=== PATIENT | female | born 1950 | race Caucasian/White ===

== ENCOUNTER 2023-09-21 09:39 | Emergency (ER) | payer MEDICARE, OTHER ==
--- NOTE | 2023-09-21 10:06 | ED Physician Documentation ---
PD HPI LOWER EXT INJURY - Stated complaint Stated Complaint: LT TOE INJURY - Chief complaint Chief Complaint: Ext Problem - History obtained from History obtained from: Patient - History of Present Illness PD HPI LOW EXT INJURY LOCATION: Left, Toe Type of injury: No: Fall, Twist Timing - onset: How many months ago (has had pain of great toe mainly mornings for months, better after up and walking/moving it. No redness, skin lesions. Has been more consistent the past week or so, and much more painful in the mornings.) PD PAST MEDICAL HISTORY - Past Medical History Past Medical History: Yes Musculoskeletal: Rheumatoid arthritis - Past Surgical History Past Surgical History: Yes Ortho: Hip replacement, Other - Present Medications Home Medications: Ambulatory Orders Medication Instructions Recorded Confirmed Diclofenac Sodium 1 mg PO BID #50 gm 09/21/23 - Allergies Allergies/Adverse Reactions: Allergies Allergy/AdvReac Type Severity Reaction Status Date / Time No Known Drug Allergies Allergy Verified 09/21/23 10:03 - Social History Does the pt smoke?: No Smoking Status: Never smoker Does the pt drink ETOH?: Yes Does the pt have substance abuse?: No - Immunizations Immunizations are current?: Yes - POLST Patient has POLST: No PD ED PE NORMAL - Vitals Vital signs reviewed: Yes - General General: Alert and oriented X 3, Well developed/nourished - Derm Derm: Normal color, Warm and dry - Extremities Extremities: Other (good cap refil and color in toes. Palpable pulses at ankle. No redness nor swelling of toe. No skin sores. Old surgical scar first MT with hardware palpable under skin, not tende there. ) - Neuro Neuro: No motor deficit, No sensory deficit Results - Vitals Vitals: Oxygen O2 Source Room air - Rads (name of study) great toe xray Relevant Findings:: Prelim report reviewed (fusion and hardware 1st MT/MTP. Chronic degerative change 4th toe PIP. ) PD Medical Decision Making - ED course Complexity details: reviewed results (xray arthritic changes. Prior bunion surgery. 4th PIP degenerative. No pain there though. ), considered differential (great toe pain at IP not MTP, worse in AMs until moves around some. Not much pain during days. Seems to have good color and pulses. Prior bunion surgery with hardware proximal. Likely arthritic. Does not appear as gout. ), d/w patient ED course: presume arthritic cause of pain with morning stiffness/pain. Does not seem infection nor gout. Can treat short term with NSAIDs and add Tylenol. Tylenol alone has not been effective for her, so add pain meds PRN. Departure - Departure Disposition: 01 Home, Self Care Clinical Impression: Great toe pain, Ingrown nail of great toe, Arthritis of big toe Condition: Stable Record reviewed to determine appropriate education?: Yes Follow-Up: JAZLYN ARREDONDO MD [Primary Care Provider] - Prescriptions: Diclofenac Sodium 1 mg PO BID #50 gm Comments: You did have the ingrowing toenail and upon removing that corner of it the skin was somewhat indented and red appearing. I think this may have been causing some of your pain. However I am not sure on the timing of it hurting mostly in the mornings or at night. There may be some arthritic change in through the toe as well and certainly her x-ray shows some mild arthritis in general. We can have you try some anti-inflammatory on the toe area 2-3 times daily. I understand you would prefer not to have oral medication and there is a topical version called diclofenac that he can be placed on their with a similar benefit. See how it is over the next several days to week if it seems to be improved. The anti-inflammatory would be with the impression that some of the pain may be just arthritis through the area. No signs of fractures or other abnormalities other than chronic changes around the bunion surgery and your fourth toe. Forms: PCP List Discharge Date/Time: 09/21/23 12:13
[2023-09-21 10:11] VITALS: O2SAT 100
--- NOTE | 2023-09-21 11:32 | XRAY Report ---
PROCEDURE: Toe(s) 2+V LT INDICATIONS: great toe pain TECHNIQUE: 3 views of the first toe(s) acquired. COMPARISON: None. FINDINGS: Bones: No fractures or dislocations. First MTP joint fusion. No evidence of hardware complication. N o suspicious bony lesions. Chronic appearing deformity of the fourth PIP. Second and third PIP appear ankylosed. Soft tissues: No suspicious soft tissue densities. IMPRESSION: No acute bony abnormality. First MTP joint fusion without evidence of hardware complication. Reviewed by: Arnoldo Johansen MD on 09/21/2023 10:31 AM EDITH Approved by: Arnoldo Johansen MD on 09/21/2023 10:31 AM DEITH Station ID: [id number]
[2023-09-21 12:16] VITALS: BP 128/62
== END 2023-09-21 12:13 | disposition home or self-care (01) ==
LOC: ED 09:39
DX: M19.072 Primary osteoarthritis, left ankle and foot (principal); L60.0 Ingrowing nail
CPT/HCPCS: 11765; 73660; 99283

== ENCOUNTER 2023-11-16 15:33 | Emergency (ER) | payer MEDICARE ==
--- NOTE | 2023-11-16 15:47 | ED Physician Documentation ---
PD HPI CHEST PAIN - Stated complaint Stated Complaint: CHEST PX - Chief complaint Chief Complaint: Cardiac - Additional information Additional information: 73-year-old female presents emergency department for intermittent chest pain that has been going on for 2 to 3 days now. Patient says that she is under an extensive amount of stress at home lately and has been having hard time coping with this. She is a very poor historian she says that she has history of low sodium last saw her primary care provider about 6 to 12 months ago and she was told to be on sodium tablets but has not been taking them. No nausea or vomiting no vision changes no shortness of breath she says that the chest pain is not caused by any sort of exertional activity and it comes on randomly. She is not currently experiencing any chest pain at this point time denies any unilateral calf or leg pain. PD PAST MEDICAL HISTORY - Past Medical History Past Medical History: Yes Musculoskeletal: Rheumatoid arthritis - Past Surgical History Past Surgical History: Yes Ortho: Hip replacement, Other - Present Medications Home Medications: Ambulatory Orders Medication Instructions Recorded Confirmed Sodium Chloride 1,000 mg PO DAILY #30 tab 11/16/23 - Allergies Allergies/Adverse Reactions: Allergies Allergy/AdvReac Type Severity Reaction Status Date / Time No Known Drug Allergies Allergy Verified 09/21/23 10:03 - Social History Does the pt smoke?: No Smoking Status: Never smoker Does the pt drink ETOH?: Yes Does the pt have substance abuse?: No - Immunizations Immunizations are current?: Yes - POLST Patient has POLST: No PD ED PE NORMAL - Vitals Vital signs reviewed: Yes - General General: Alert and oriented X 3, No acute distress, Well developed/nourished - HEENT HEENT: Atraumatic - Cardiac Cardiac: RRR, No murmur, No gallop, Strong equal pulses - Respiratory Respiratory: No respiratory distress, Clear bilaterally - Derm Derm: Normal color, Warm and dry, No rash - Extremities Extremities: No deformity, No edema, No calf tenderness / cord - Neuro Neuro: Alert and oriented X 3, 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, No motor deficit, No sensory deficit, Normal speech - Psych Psych: Normal mood, Normal affect Results - Vitals Vitals: Vital Signs - 24 hr 11/16/23 11/16/23 11/16/23 15:37 16:11 16:30 Temperature 36.8 C Heart Rate 87 78 82 Respiratory 16 16 16 Rate Blood Pressure 173/88 H 132/86 H 130/82 H Blood Pressure [Left] O2 Saturation 100 98 98 11/16/23 11/16/23 11/16/23 16:31 17:00 17:30 Temperature Heart Rate 80 78 Respiratory 18 18 Rate Blood Pressure 128/80 126/80 Blood Pressure 137/81 H [Left] O2 Saturation 98 98 11/16/23 17:59 Temperature Heart Rate 77 Respiratory 16 Rate Blood Pressure 126/80 Blood Pressure [Left] O2 Saturation 100 Oxygen O2 Source Room air - EKG (time done) 1601 EKG releavant findings:: EKG personally interpreted by author of this note. Relevant findings are: Rate: Rate (enter#) (85) Rhythm: NSR [place]: Normal Intervals: Normal AK, Prolonged QT QRS: Normal Ischemia: Normal ST segments - Labs Labs: Laboratory Tests 11/16/23 11/16/23 11/16/23 16:20 16:20 16:20 WBC 7.3 RBC 4.49 Hgb 13.0 Hct 38.4 MCV 85.5 MCH 29.0 MCHC 33.9 RDW 12.5 Plt Count 261 MPV 8.6 Neut # (Auto) 4.9 Lymph # (Auto) 1.8 Saline # (Auto) 0.6 Eos # (Auto) 0.0 Baso # (Auto) 0.1 Absolute Nucleated RBC 0.00 Nucleated RBC % 0.0 Sodium 128 L Potassium 3.8 Chloride 97 L Carbon Dioxide 22 Anion Gap 9.0 BUN 14 Creatinine 0.5 L Estimated GFR (MDRD) 122 Glucose 85 Calcium 9.0 Total Bilirubin 0.4 AST 13 ALT 12 Alkaline Phosphatase 45 Troponin I High Sens 2.4 Total Protein 6.3 L Albumin 4.1 Globulin 2.2 Albumin/Globulin Ratio 1.9 Lipase 52 TSH 1.59 - Rads (name of study) Chest x-ray Relevant Findings:: Final report received, EMP independent interpretation of test, Other (No acute cardiopulmonary process.) PD Medical Decision Making - ED course ED course: Exam without evidence of volume overload so doubt heart failure. EKG without signs of active ischemia. Given the timing of pain to ER presentation, single troponin was negative so doubt NSTEMI. Presentation not consistent with acute PE (Wells low risk low), pneumothorax (not visualized on chest xr), thoracic aortic dissection, pericarditis, tamponade, pneumonia (no infectious symptoms, clear chest xr), myocarditis (no recent illness, neg trop). HEART score:4 so plan to discharge patient home with PCP follow up. Patient did have hyponatremia, sodium 128 according to patient she always chronically has hyponatremia. She was told starting her salt tabs and a prescription was sent for the patient to pick these up tomorrow to see if her insurance will cover it. She is a little with her primary care provider as soon as possible for further evaluation and strict ER return precautions given. Departure - Departure Disposition: Home, Self Care Clinical Impression: Low sodium levels Chest pain Qualifiers: Chest pain type: unspecified Qualified Code(s): R07.9 - Chest pain, unspecified Instructions: ED Chest Pain Atypical Unkn Cause, ED Hyponatremia Prescriptions: Sodium Chloride 1,000 mg PO DAILY #30 tab Comments: Thank you for trusting us with your care, we have evaluated you for your chest pain. We have completed labs as well as an EKG and a chest x-ray and we are not seeing any acute abnormalities or findings at this point in time. We do see that you have low sodium also known as hyponatremia today your sodium level was 128. I have sent a prescription of salt tabs to your preferred pharmacy although you can buy these [id number] as well I would recommend taking 1 tab daily to help with your low sodium and follow-up with your primary care provider for further evaluation of your low sodium as well as a possible at home Holter monitor or Zio patch to monitor your heart rate at home. If you start to develop any worsening chest pain or shortness of breath or new symptoms please come back to the emergency department for reevaluation. Forms: PCP List Discharge Date/Time: 11/16/23 17:44
[2023-11-16 16:32] LABS: BASOPHILS # (AUTO) 0.1 10^3/uL (0.0-0.1); BASOPHILS % (AUTO) 1.1 %; EOSINOPHILS % (AUTO) 0.4 %; HCT - HEMATOCRIT 38.4 % (37.0-47.0); LYMPHOCYTES # (AUTO) 1.8 10^3/uL (1.5-3.5); LYMPHOCYTES % (AUTO) 24.1 %; MEAN CORPUSCULAR HGB CONC 33.9 g/dL (32.0-36.0); MEAN CORPUSCULAR VOLUME 85.5 fL (81.0-99.0); MEAN PLATELET VOLUME 8.6 fL (7.9-10.8); MONOCYTES # (AUTO) 0.6 10^3/uL (0.0-1.0); MONOCYTES % (AUTO) 7.8 %; NEUTROPHILS # (AUTO) 4.9 10^3/uL (1.5-6.6); NEUTROPHILS % (AUTO) 66.5 %; PLT - PLATELET COUNT 261 10^3/uL (130-450); RED BLOOD COUNT 4.49 10^6/uL (4.20-5.40); RED CELL DISTRIBUTION WIDTH 12.5 % (12.0-15.0); WHITE BLOOD COUNT 7.3 x10^3/uL (4.8-10.8)
[2023-11-16 16:53] LABS: TROPONIN I HIGH SENSITIVITY 2.4 ng/L (2.3-14.8)
[2023-11-16 17:05] LABS: ALBUMIN 4.1 g/dL (3.2-5.5); ALBUMIN/GLOBULIN RATIO 1.9 (1.0-2.2); BILIRUBIN,TOTAL 0.4 mg/dL (0.2-1.0); CREATININE 0.5 mg/dL (0.6-1.3); POTASSIUM 3.8 mmol/L (3.5-4.5); TOTAL PROTEIN 6.3 g/dL (6.4-8.9)
--- NOTE | 2023-11-16 17:19 | XRAY Report ---
PROCEDURE: Chest 1V INDICATIONS: Chest pain TECHNIQUE: One view of the chest was acquired. COMPARISON: 11/22/2021 FINDINGS: Surgical changes and devices: None. Lungs and pleura: No pleural effusions or pneumothorax. Lungs are clear. Mediastinum: Mediastinal contours appear normal. Heart size is normal. Bones and chest wall: No suspicious bony lesions. Overlying soft tissues appear unremarkable. IMPRESSION: No acute cardiopulmonary process. Reviewed by: José Manuel Mckeon MD on 11/16/2023 5:18 PM PDT Approved by: José Manuel Mckeon MD on 11/16/2023 5:18 PM PDT Station ID: [id number]
[2023-11-16 17:50] VITALS: BP 126/80
[2023-11-16 18:09] VITALS: O2SAT 100
== END 2023-11-16 17:44 | disposition home or self-care (01) ==
LOC: ED 15:33
DX: R07.9 Chest pain, unspecified (principal); E87.1 Hypo-osmolality and hyponatremia
CPT/HCPCS: 36415; 80053; 83690; 84443; 84484; 85025; 93005; 99283; 99284

== ENCOUNTER 2023-11-22 10:17 | Observation (INO) | payer MEDICARE ==
[2023-11-22 10:58] LABS: BASOPHILS # (AUTO) 0.1 10^3/uL (0.0-0.1); EOSINOPHILS % (AUTO) 0.4 %; HCT - HEMATOCRIT 40.3 % (37.0-47.0); HGB - HEMOGLOBIN 13.6 g/dL (12.0-16.0); LYMPHOCYTES % (AUTO) 19.1 %; MEAN CORPUSCULAR HEMOGLOBIN 29.1 pg (27.0-31.0); MEAN CORPUSCULAR HGB CONC 33.7 g/dL (32.0-36.0); MEAN CORPUSCULAR VOLUME 86.1 fL (81.0-99.0); MEAN PLATELET VOLUME 8.7 fL (7.9-10.8); MONOCYTES # (AUTO) 0.6 10^3/uL (0.0-1.0); MONOCYTES % (AUTO) 10.9 %; NEUTROPHILS # (AUTO) 3.5 10^3/uL (1.5-6.6); NEUTROPHILS % (AUTO) 68.2 %; PLT - PLATELET COUNT 225 10^3/uL (130-450); RED BLOOD COUNT 4.68 10^6/uL (4.20-5.40); RED CELL DISTRIBUTION WIDTH 12.7 % (12.0-15.0); WHITE BLOOD COUNT 5.1 x10^3/uL (4.8-10.8)
[2023-11-22 11:11] LABS: ALBUMIN 4.3 g/dL (3.2-5.5); ALBUMIN/GLOBULIN RATIO 1.7 (1.0-2.2); BILIRUBIN,TOTAL 0.5 mg/dL (0.2-1.0); CALCIUM 9.1 mg/dL (8.5-10.3); CREATININE 0.6 mg/dL (0.6-1.3); POTASSIUM 3.8 mmol/L (3.5-4.5); TOTAL PROTEIN 6.8 g/dL (6.4-8.9)
[2023-11-22 11:18] LABS: TROPONIN I HIGH SENSITIVITY 2.3 ng/L (2.3-14.8)
[2023-11-22 12:17] LABS: BILIRUBIN,URINE NEGATIVE (NEGATIVE); GLUCOSE, URINE (UA) NEGATIVE (NEGATIVE); KETONES,URINE (UA) NEGATIVE (NEGATIVE); LEUKOCYTE ESTERASE, URINE NEGATIVE (NEGATIVE); NITRITE,URINE NEGATIVE (NEGATIVE); OCCULT BLOOD,URINE SMALL (NEGATIVE); PH,URINE 6.5 PH (5.0-7.5); PROTEIN,URINE NEGATIVE (NEGATIVE); UROBILINOGEN,URINE 0.2 (NORMAL) E.U./dL (NORMAL)
[2023-11-22 12:21] LABS: CLARITY,URINE CLEAR (CLEAR)
--- NOTE | 2023-11-22 12:21 | ED Physician Documentation ---
History of Present Illness - Stated complaint Stated Complaint: GEN WEAKNESS, - Chief complaint Chief Complaint: Cardiac - Additonal information Additional information: 73-year-old female was here about a week ago for chest pain and had an unremarkable workup at that point time she did have hyponatremia, sodium level was 128. She was told before that she has had low sodium was told to take salt tabs but has not been taking them I told her to go home start taking her salt tabs and to follow-up with her primary care provider. Patient remains a very poor historian but she is here with her who says that he has been adding more salt to her food as well as patient has been taking daily salt tabs. She says since last week she has been having severe increased generalized weakness to the point where she feels like she is having a hard time walking she has a severe headache that will not go away and she is now complaining of urinary urgency and frequency. PD PAST MEDICAL HISTORY - Past Medical History Past Medical History: Yes Musculoskeletal: Rheumatoid arthritis - Past Surgical History Past Surgical History: Yes Ortho: Hip replacement, Other - Present Medications Home Medications: Ambulatory Orders Medication Instructions Recorded Confirmed Sodium Chloride 1,000 mg PO DAILY #30 tab 11/16/23 - Allergies Allergies/Adverse Reactions: Allergies Allergy/AdvReac Type Severity Reaction Status Date / Time No Known Drug Allergies Allergy Verified 11/22/23 13:19 - Social History Does the pt smoke?: No Smoking Status: Never smoker Does the pt drink ETOH?: Yes Does the pt have substance abuse?: No - Immunizations Immunizations are current?: Yes - POLST Patient has POLST: No PD ED PE NORMAL - Vitals Vital signs reviewed: Yes - General General: Alert and oriented X 3, No acute distress, Well developed/nourished - HEENT HEENT: Atraumatic, PERRL, EOMI, Moist mucous membranes - Cardiac Cardiac: RRR - Respiratory Respiratory: No respiratory distress - Abdomen Abdomen: Normal bowel sounds, Soft, Non tender, Non distended, No organomegaly - Back Back: No CVA TTP - Derm Derm: Normal color, Warm and dry, No rash - Extremities Extremities: No deformity, No tenderness to palpate, Normal ROM s pain, No edema, No calf tenderness / cord, Other (generalized upper and lower extremity weakness) - Neuro Neuro: Alert and oriented X 3, 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 Relevant findings are: Rate: Rate (enter#) (85) Rhythm: NSR Intervals: Other (ME 117) QRS: Normal Ischemia: Other (minimal ST depression in the inferior leads) Computer interpretation: Agree with computer - Labs Labs: Laboratory Tests 11/22/23 11/22/23 10:53 10:53 WBC 5.1 RBC 4.68 Hgb 13.6 Hct 40.3 MCV 86.1 MCH 29.1 MCHC 33.7 RDW 12.7 Plt Count 225 MPV 8.7 Neut # (Auto) 3.5 Lymph # (Auto) 1.0 L [place] # (Auto) 0.6 Eos # (Auto) 0.0 Baso # (Auto) 0.1 Absolute Nucleated RBC 0.00 Nucleated RBC % 0.0 Sodium 125 L Potassium 3.8 Chloride 91 L Carbon Dioxide 27 Anion Gap 7.0 BUN 10 Creatinine 0.6 Estimated GFR (MDRD) 99 Glucose 126 H Calcium 9.1 Total Bilirubin 0.5 AST 15 ALT 15 Alkaline Phosphatase 53 Troponin I High Sens 2.3 Total Protein 6.8 Albumin 4.3 Globulin 2.5 Albumin/Globulin Ratio 1.7 Lipase 49 PD Medical Decision Making - ED course ED course: 73-year-old female presents emergency department for worsening bilateral lower and upper extremity weakness. Patient is very poor historian unsure if she is at her mentation baseline or not when asked if she feels confused she says that she just feels fuzzy in the head. Her primary care provider is in [place] she does not remember the name. Her concern was possible urinary tract infection because she is been having urinary urgency and frequency. Urinalysis was complete for further evaluation shows a small amount of blood but no leukocytes or nitrites with few bacteria making less suspicious for possible UTI. Labs were reevaluated and her sodium appears to have dropped within the last week a week ago when I saw her sodium was 128 today is 125 despite adding salt tabs supplements and increasing salt intake with her diet. No anemia no other electrolyte abnormalities or findings. Differentials to consider for hyponatremia include but not limited to SIADH, possible undiagnosed heart failure (although unlikely given that patient has no bilateral lower extremity swelling or shortness of breath) or liver cirrhosis (again unlikely given the fact that patient has normal LFTs no right upper quadrant pain or tenderness. Patient was given 100 mL of hypertonic normal saline IV fluid solution I called hospitalist Renetta Curran who has graciously agreed to admit the patient for symptomatic hyponatremia and further evaluation for observation. Patient is agreeable to stay. Departure - Departure Disposition: ED Place in Observation Discharge Date/Time: 11/22/23 14:38
[2023-11-22 12:56] LABS: BACTERIA,URINE Few /HPF (None Seen); RBC,URINE 0-5 /HPF (0-5); SQUAMOUS EPITHELIAL CELL,UR FEW Squamous (<= Few); WBC,URINE 0-3 /HPF (0-5)
[2023-11-22] MEDS ORDERED: ONDANSETRON 4 MG/2 ML VIAL IVP PRN (13:25)
[2023-11-22] MEDS ORDERED: ACETAMINOPHEN 325 MG TABLET PO PRN (13:25)
[2023-11-22] MEDS ORDERED: SODIUM CHLORIDE FLUSH 0.9% 10 ML SYRINGE IVP PRN (13:25)
[2023-11-22] MEDS ORDERED: ONDANSETRON ODT 4 MG TABLET TL PRN (13:25)
[2023-11-22] MEDS ORDERED: oxyCODONE 5 MG TABLET PO PRN (13:25)
--- NOTE | 2023-11-22 13:33 | HISTORY & PHYSICAL EXAMINATION ---
Chief Complaint - Chief Complaint Chief Complaint: generalized weakness for a week History of Present Illness - Admitted From Admitted From:: home - History Obtained From Records Reviewed: [facility] History obtained from: Faina Mckinnon and patient Exam Limitations: none - History of Present Illness HPI Comment/Other: 73-year-old female who has a progressive memory loss for over 2-3 years as well as rheumatoid arthritis and was seen in our emergency room a week ago for chest pain. At that time she did have a sodium level of 128, troponins were negative, EKG negative and repeat troponin was negative. So she was sent home. She was also told to start salt tablets. She thinks she has been taking them. She is not sure. When I ask her , he says that he trust her to do her own medications. When I pointed out that they just shared with me that she has significant memory loss, there is a really believe that she is taking her medications. He said that the point was taken and that she may not be taking them after all and he will now take it upon himself to make sure she takes her medications. [place] and her primary care provider is Mike Hernandez MD with [facility] in [place]. [phone]. She may be confabulating and her states that he does not remember any of this but the patient tells me that her doctor told her that she had a low-salt years ago. And that she may have SIADH. Again, very poor memory, and is getting events confused in her head. She and her were living in [facility]. they moved here to have less pressure in their lives. He had a wall fall on him on the job and he had a neck fracture and months of recovery. He just could not work anymore. And then the 5 acres that they lived on was getting to be more work than he can take care of. They started scouting around for a new place to live and looked in [place], [place], [place], etc. [place]. [place] are starting to realize that medical care is difficult to access because [place] and have not been able to find an office to take her. She now returns with the same generalized weakness. Not much better than it was before. She feels like she cannot walk very far because her legs are "like noodles". She has a headache, urgency, frequency. Mild nausea. But no vomitin g, diarrhea. Feels like she has a fever but it is not confirmed. Her exam showed mildly elevated blood pressure at 167/88. 99% saturated on room air. Respirations 18 and unlabored. Heart rate 99 and a temp of 36.6. She was felt to have a normal physical exam. No edema. Alert and oriented x 3. Neuroexam normal. Laboratory studies showed a normal CBC. Sodium had been 128 last week and was now 125. BUN 10 and creatinine 0.6. Random glucose 126. Urinalysis had a specific gravity of 1.010. pH is 6.5. A few squamous cells, few bacteria. EKG had sinus rhythm with a normal axis. Normal R wave progression. Minimal nonspecific ST changes in the inferior leads. Troponin was 2.3. The emergency room provider feels that the patient is symptomatic from her hyponatremia of 125. And gave her 100 cc of hypertonic saline at 100 mL an hour. Repeat lab not done yet. As such, I am placing the patient in observation status. I am hoping that we can turn her sodium around to at least 130 in the next few hours and then discharge her. I will not give her more saline or hypertonic saline until I know what her sodium is after the hypertonic saline. Review of systems: Headache, presbyopia, memory loss, and frequent falls. In the last 3 weeks she has fallen 3 times. She thinks it is a combination of loss of balance or tripping on things. No seizures. Her thinks the memory loss may have been going on for more than 2 to 3 years. He remembers her having memory loss with constipation at the time of her hip fracture and repair probably 5 years ago. She eats a normal amount. No recent weight loss or weight gain. No constitutional complaints of fevers or sweats. ENT is the presbyopia. No dysphagia, dysarthria. No eustachian tube dysfunction. No rhinitis symptoms. Pulmonary: Denies cough, congestion, dyspnea exertion, phlegm production. Cardiac: Denies palpitations, history of arrhythmia, orthopnea, edema, or change in cardiovascular endurance. I ask about the chest pain from last week and she does not remember coming to the ER or the chest pain. She does vaguely remember being told that someone diagnosed her with a low-salt and she should be taking s alt tablets. GI: Constipation. She laments that sometimes she can go 7 or 8 days without a bowel movement. But no abdominal pain, no diarrhea, no change in the pattern of her bowel movements. No blood in her stool. : Occasional urinary incontinence. No vaginal bleeding. No urgency, frequency, dysuria Joints: No severe pain, no effusions. Skin: No sickness, no new lesions, no new rashes Psych: sad about her memory loss but denies depresssion due to her belief in the after life. Denies hallucinations. Neuro: Positive for headache, presbyopia, falls due to balance issues, and moderately progressive memory loss. He relates that he came in from working outside in the yard last week. Found her with a cold compress on the left side of her face where she had fallen and hit her face on the floor. I am noting that this patient has a very flat, monotonic, slow affect. I asked him how long this has been going on and he says 6 to 9 months. History - Past Medical History Cardiovascular: reports: None Respiratory: reports: None Neuro: reports: Alzhiemer's, Headaches, Other (falls) Endocrine/Autoimmune: reports: None GI: reports: Chronic constipation CASH POSTING SPECIALIST: reports: Other ( G0, P0) : reports: Incontinence, Frequency HEENT: reports: Chronic vision loss Psych: reports: None Musculoskeletal: reports: Rheumatoid arthritis MRSA Hx?: No - Past Surgical History Ortho: reports: Hip replacement, Other - Family & Social History Family History Comment/Other: dad in his 70s of a ruptured aortic aneurysm. Mom of congestive heart failure. 1 sister in July, 2 years ago, of metastatic breast cancer. For close to 10 years she treated it on her own. She did not want chemo. 1 brother in a car accident. No children. She has 1 adopted daughter from [facility] who she adopted at the age of 17 and is now 28. Living arrangement: At home Living Situation: With spouse/s.o. Social History Notes: She never smoked. She rarely drinks. Is a born again Christianity and feels that when she dies she will meet up with her family and have them. 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 She is to her for over 40 something years. Retired about 5 years ago she thinks. Not sure. No history of recreational substance abuse. - Substance History Use: Uses substance without health or social issues: NONE Abuse: Recurrent use of substance despite neg consequences: NONE Dependence: Experiences withdrawal or developed tolerances: NONE - POLST Patient has POLST: No POLST Status: DNR (Would like to fill out a POLST) Meds/Allgy - Home Medications Home Medications: Ambulatory Orders Medication Instructions Recorded Confirmed Sodium Chloride 1,000 mg PO DAILY #30 tab 11/16/23 - Allergies Allergies/Adverse Reactions: Allergies Allergy/AdvReac Type Severity Reaction Status Date / Time No Known Drug Allergies Allergy Verified 11/22/23 13:19 Prior Level of Functionality: able to feed herself, dress herself. Needs prompting to get a bath. So far is not using durable medical equipment to get around even though she has been falling. Exam - Vital Signs Reviewed Vital Signs: Yes Vital Signs: Vital Signs x48h Temp Pulse Resp BP Pulse Ox 11/22/23 13:03 73 11 L 139/73 H 100 11/22/23 10:25 36.6 C 99 18 167/88 H 99 - Physical Exam General Appearance: positive: No acute distress, Alert ( Sitting up in bed, occasionally smiles but severely depressed/flat/anhedonic slow-moving affect. Bradykinesia evident.) Eyes Bilateral: positive: PERRL, EOMI ENT: positive: No signs of dehydration Neck: positive: No JVD. negative: Stiff neck Respiratory: positive: No respiratory distress. negative: Wheezes, Rales, Rhonchi Cardiovascular: positive: Regular rate & rhythm Peripheral Pulses: positive: 1+ Abdomen: positive: Non-tender, No organomegaly, Nml bowel sounds, No distention Skin: positive: Warm, Dry. negative: Pallor Extremities: positive: Full ROM. negative: No pedal edema Neurologic/Psychiatric: positive: Disoriented to time, Slurred/abnml speech, Depressed mood/affect. negative: Motor nml ( Psychomotor slowing with bradykinesia), Weakness, Sensory loss Conclusion/Plan - Problem List (1) Hyponatremia Conclusion/Plan: This is a difficult historian. At times the conversation with circular. but her symptoms of worsening weakness, acute worsening of memory, nausea, lack of appetite could all be symptoms of hyponatremia. Her appears to be giving her a lot of credence and is letting her make her own decisions, but even he is starting to realize that some of her story is inconsistent, and that he may have to become more of a primary caregiver that he already is. For instance he assumed she was taking her salt tablets and now he is wondering if she is. She also says that she has a SIADH and that her low sodium has been going on for years. But he is shaking his head slowly thinking that this is not the truth but he is not sure. Differential diagnosis would include such fluid retention states that she is congestive heart failure, cirrhosis. She does not have it. Medications such as diuretics, she does not have that. Or serotonin reuptake inhibitors. She says she does not take those drugs. She could have SIADH and seems to remember that acronym but I really cannot trust her memory. There is no description of water intoxication. Her [place] adopted daughter is very high needs and high maintenance. Is always telling mom to drink more water but mom thinks that she does not drink more than eight 8 ounce glasses a day. She is already received 100 cc of hypertonic saline in the ER. Plan: observation status Normal saline to start once I know her next Sodium level. I do not think the patient will be here greater than 24 hours, and I will be off service when the [facility] office is open on Friday. But I will keep her name and number and call her primary care provider to see if there has been any workup for the sodium so far. Recheck sodium every 6 hours and adjust Nork to normal saline or D5 depending on the salt level. (2) Dementia Conclusion/Plan: If she only had memory loss, I feel that this would be more Alzheimer's type dementia. But she seems to have bradykinesia compatible with parkinsonian p atient so I wonder if she has Lewy body dementia. However she does not have psychosis or hallucinations. She has no history of alcohol abuse that would give her alcoholic induced dementia. She is falling, is incontinent, and has a flat affect which leads me to believe she may have normal pressure hydrocephalus as a possible differential. Plan: TSH, B12, RPR will be ordered by me for the morning Review CT of the head and if there is any ventriculomegaly she will need an MRI and a cisternogram I will send this H&P to her PCP at her request so that there is continuity of care. Qualifiers: Dementia type: unspecified type Dementia severity: moderate Dementia behavioral or psychological symptom: without behavioral, psychotic, or mood disturbance or anxiety Qualified Code(s): F03.B0 - Unspecified dementia, moderate, without behavioral disturbance, psychotic disturbance, mood dist urbance, and anxiety (3) Has difficulty accessing primary care provider for most visits Conclusion/Plan: I will ask social work to please give her a [place]. But I have asked the patient to go ahead and make an [place] Keep on seeing that primary care provider until she can establish yourself with someone here. The patient also states that she wants to be DO NOT RESUSCITATE. So I will to have her fill out a POLST form. - Lab Results Lab results reviewed: Yes Fish Bones: 11/22/23 10:53 11/22/23 16:38 - Diagnostic Imaging Results Diagnostic Imaging Results: positive: Final report reviewed Core Measures - Anticipated LOS I expect patient to be DC'd or transferred within 96 hours.: Yes - DVT/VTE - Prophylaxis VTE/DVT Prophylaxis med ordered at admit?: Yes
[2023-11-22] MEDS: SODIUM CHLORIDE 3% HYPERTONIC 100 ML IV SCH (13:48)
[2023-11-22] MEDS: SODIUM CHLORIDE 0.9% 1,000 ML IV SCH (15:06)
[2023-11-22] MEDS: SODIUM CHLORIDE FLUSH 0.9% 10 ML SYRINGE IVP SCH (18:03)
[2023-11-22 23:16] LABS: CALCIUM 8.5 mg/dL (8.5-10.3); CREATININE 0.5 mg/dL (0.6-1.3); POTASSIUM 3.7 mmol/L (3.5-4.5)
[2023-11-23 05:32] LABS: BASOPHILS % (AUTO) 0.8 %; EOSINOPHILS # (AUTO) 0.1 10^3/uL (0.0-0.7); EOSINOPHILS % (AUTO) 2.1 %; HCT - HEMATOCRIT 35.1 % (37.0-47.0); LYMPHOCYTES # (AUTO) 1.2 10^3/uL (1.5-3.5); LYMPHOCYTES % (AUTO) 30.8 %; MEAN CORPUSCULAR HEMOGLOBIN 29.6 pg (27.0-31.0); MEAN CORPUSCULAR HGB CONC 34.2 g/dL (32.0-36.0); MEAN CORPUSCULAR VOLUME 86.5 fL (81.0-99.0); MEAN PLATELET VOLUME 8.8 fL (7.9-10.8); MONOCYTES # (AUTO) 0.6 10^3/uL (0.0-1.0); MONOCYTES % (AUTO) 14.9 %; NEUTROPHILS % (AUTO) 51.1 %; PLT - PLATELET COUNT 183 10^3/uL (130-450); RED BLOOD COUNT 4.06 10^6/uL (4.20-5.40); RED CELL DISTRIBUTION WIDTH 12.7 % (12.0-15.0); WHITE BLOOD COUNT 3.9 x10^3/uL (4.8-10.8)
[2023-11-23 05:47] LABS: CALCIUM 8.4 mg/dL (8.5-10.3); CREATININE 0.4 mg/dL (0.6-1.3); POTASSIUM 3.7 mmol/L (3.5-4.5)
[2023-11-23 06:02] LABS: THYROID STIMULATING HORMONE 1.95 uIU/mL (0.34-5.60)
--- NOTE | 2023-11-23 07:50 | CT Report ---
PROCEDURE: Head WO INDICATIONS: frequent falls, ataxia, urine incont, dementia TECHNIQUE: Noncontrast 4.5 mm thick angled axial sections acquired from the foramen magnum to the vertex. For r adiation dose reduction, the following was used: automated exposure control, adjustment of mA and/or kV according to patient size. COMPARISON: None. FINDINGS: Image quality: Excellent. CSF spaces: Basal cisterns are patent. No extra-axial fluid collections. Ventricles are normal in size and shape. Brain: No midline shift. No intracranial masses or hemorrhage. Age-related global volume loss and c hronic microvascular ischemic changes. The ventricles are normal in size for degree of volume loss. I ntracranial atherosclerotic vascular calcifications. Henderson-white matter interface is normal. Skull and face: Osseous prominence along the right parietal bone measuring 3.0 x 1.0 x 3.0 cm (AP by TV by CC). Calvarium and visualized facial bones are intact, without suspicious lesions. Sinuses: Visualized sinuses and mastoids are clear. IMPRESSION: 1.No acute intracranial pathology. 2.Osseous prominence along the right parietal bone as described above. Likely benign in etiology. Rec ommend clinical correlation and if there is concern for growth, follow-up imaging. Reviewed by: Arnoldo Moreland MD on 11/23/2023 7:48 AM PDT Approved by: Arnoldo Moreland MD on 11/23/2023 7:48 AM PDT Station ID: [id number]
--- NOTE | 2023-11-23 08:15 | Discharge Plan ---
Discharge Plan Problem Reviewed?: Yes Disposition: Home, Self Care Condition: Stable Diet: Regular Activity Restrictions: Activity as Tolerated Shower Restrictions: No Driving Restrictions: Yes (no driving) Health Concerns: [place] and your primary care provider is with [facility] in [place]. Your main medical issue is that of memory loss has been gradually progressive over the last 2 to 3 years. You came to our emergency room a few days ago with weakness, fatigue, nausea and worsening of your baseline memory loss. In the emergency room we found you to have a sodium of 128. Normal is 135. You were given salt tablets and sent home. It is unclear if you are taking them. You return to the hospital with continued weakness and you felt like your legs were not can to support you. You came back to the emergency room at this time your sodium was 124. We have given you salt water intravenously. And your sodium is now 131 this morning. I also did a CT head because of your history of falls. You have a bony growth on the right side of your skull. But the inside of your skull appears to be com patible with age and loss of brain tissue from dementia. Plan of Treatment: 1. Please see your primary care provider in follow-up back in [place]. You are going to have to keep on seeing Dr. Hernandez until you can establish yourself with a new primary care provider office. 2. [employer] has given you a list of primary care provider offices. Please start calling them immediately so that you can get an appointment sooner rather than later. 3. When we met, we went over your wishes for the future and you do not want to be resuscitated if your heart stops or you stop breathing. As such you filled out a POLST form while here. The original green sheet will go home with you and a copy of it stays in your electronic medical record here in the hospital. 4. I explained to her that she has psychomotor slowing, muted flat affect compatible with either Lewy body dementia or parkinsonian disease. She is alert and oriented to person and place. But recall is poor. She is also having urinary incontinence and falls. would like her to follow-up with her primary care provider about getting an evaluation for normal pressure hydrocephalus. Care Goals: To slow down the rate of your memory loss and to have your sodium stay normal No Smoking: If you smoke, Please STOP! Call for help.
[2023-11-23 08:17] VITALS: BP 127/74; O2SAT 97
[2023-11-23] MEDS: polyethylene glycoL 3350 17 GM PACKET PO SCH (09:24)
[2023-11-23] MEDS: ENOXAPARIN 40 MG/0.4 ML SYRINGE SUBQ SCH (09:24)
--- NOTE | 2023-11-23 14:45 | DISCHARGE SUMMARY ---
Discharge Summary Admit Date: 11/22/23 Discharge Date: 11/23/23 Discharging Provider: Laura Will MD Primary Care Provider: Mike Hernandez MD ([facility]) Code Status: Do Not Attempt Resuscitation Condition at Discharge: Stable Discharge Disposition: 01 Home, Self Care - DIAGNOSES Discharge Diagnoses with Status of Each Condition: 1. Hyponatremia with symptoms 2. Moderate Alzheimer's dementia without behavioral disturbance, psychotic disturbance, mood disturbance, or anxiety 3. Bradykinesia 4. Frequent falls 5. Urinary incontinence 6. Has difficulty accessing primary care provider for most visits - HPI History of Present Illness: 73-year-old female who has a progressive memory loss for over 2-3 years as well as rheumatoid arthritis and was seen in our emergency room a week ago for chest pain. At that time she did have a sodium level of 128, troponins were negative, EKG negative and repeat troponin was negative. So she was sent home. She was also told to start salt tablets. She thinks she has been taking them. She is not sure. When I ask her , he says that he trust her to do her own medications. When I pointed out that they just shared with me that she has significant memory loss, there is a really believe that she is taking her medications. He said that the point was taken and that she may not be taking them after all and he will now take it upon himself to make sure she takes her medications. [place] recently [place] the [place] 12 [place] ago and her primary care provider is Mike Hernandez MD with [facility] in [place]. [phone]. She may be confabulating and her states that he does not remember any of this but the patient tells me that her doctor told her that she had a low-salt years ago. And that she may have SIADH. Again, very poor memory, and is getting events confused in her head. She and her were living in [facility]. they moved here to have less pressure in their lives. He had a wall fall on him on the job and he had a neck fracture and months of recovery. He just could not work anymore. And then the 5 acres that they lived on was getting to be more work than he can take care of. They started scouting around for a new place to live and looked in [place], [place], [place], etc. [place]. [place] are starting to realize that medical care is difficult to access because [place] is [place] and have not been able to find an office to take her. She now returns with the same generalized weakness. Not much better than it was before. She feels like she cannot walk very far because her legs are "like noodles". She has a headache, urgency, frequency. Mild nausea. But no vomiting, diarrhea. Feels like she has a fever but it is not confirmed. Her exam showed mildly elevated blood pressure at 167/88. 99% saturated on room air. Respirations 18 and unlabored. Heart rate 99 and a temp of 36.6. She was felt to have a normal physical exam. No edema. Alert and oriented x 3. Neuroexam normal. Laboratory studies showed a normal CBC. Sodium had been 128 last week and was now 125. BUN 10 and creatinine 0.6. Random glucose 126. Urinalysis had a specific gravity of 1.010. pH is 6.5. A few squamous cells, few bacteria. EKG had sinus rhythm with a normal axis. Normal R wave progression. Minimal nonspecific ST changes in the inferior leads. Troponin was 2.3. The emergency room provider feels that the patient is symptomatic from her hyponatremia of 125. And gave her 100 cc of hypertonic saline at 100 mL an hour. Repeat lab not done yet. As such, I am placing the patient in observation status. I am hoping that we can turn her sodium around to at least 130 in the next few hours and then discharge her. I will not give her more saline or hypertonic saline until I know what her sodium is after the hypertonic saline. - CONSULTS | PROCEDURES Procedures: CT of head without ventriculomegaly - HOSPITAL COURSE Hospital Course: The patient received a single dose of hypertonic saline in the emergency room. That she went from 125 229 by that evening. I then started her on 0.9 normal saline and the patient is now 131 this morning. She is still a flat affect, with psychomotor slowing, but no nausea. She is not oriented to date and time but has an improved speech pattern and interactiveness with me. I am now send ing her home since her sodium has normalized. She will go home on the salt tablets were already prescribed. I am asking her to follow-up with her primary care provider from [facility] in [place]. Keep on seeing at primary care provider until she [place] We have also given her a list of primary care providers that have possible appointments for her. I have explained to the that he needs to take over giving her her medicines and making sure she eats. While he loves her very much, and "trusts her decisions" he is not keeping track of her food, bowel habits, or medications. She has enough moderate dementia at this time that he needs to allen e over those tasks. she has significant psychomotor slowing on exam. She does not present as a pical dementia patient. While she definitely has memory loss, the psychomotor slowing, flat affect, and description of urinary incontinence/gait ataxia present as a possibility for normal pressure hydrocephalus. Her CT of head was negative. I would recommend that her primary care provider continue the workup for her dementia, or send her to neurology to see if she has a variant of Parkinson's or Lewy body dementia. She is not hallucinating or does she have psychosis. TSH, B12, and RPR were normal here. - ALLERGIES Allergies/Adverse Reactions: Allergies Allergy/AdvReac Type Severity Reaction Status Date / Time No Known Drug Allergies Allergy Verified 11/22/23 13:19 - MEDICATIONS Home Medications: Ambulatory Orders Medication Instructions Recorded Confirmed Sodium Chloride 1,000 mg PO DAILY #30 tab 11/16/23 Donepezil [Aricept] 5 mg PO DAILY 11/23/23 - PHYSICAL EXAM AT DISCHARGE General Appearance: positive: No acute distress, Alert Eyes Bilateral: positive: PERRL, EOMI ENT: positive: No signs of dehydration Neck: positive: No JVD. negative: Stiff neck Respiratory: positive: No respiratory distress. negative: Wheezes, Rales, Rho nchi Cardiovascular: positive: Regular rate & rhythm Abdomen: positive: Non-tender, No organomegaly, Nml bowel sounds, No distention Skin: positive: Warm, Dry Extremities: positive: Full ROM, No pedal edema Neurologic/Psychiatric: positive: Oriented x3, CN's nml (2-12). negative: Motor nml ( No focal deficits. Romberg positive. No tremors. Psychomotor slowing with perception and response) - LABS Result Diagrams: 11/23/23 05:16 11/23/23 05:16
[2023-11-25 13:10] LABS: OSMOLALITY 269 mOsmol/kg (280-301); OSMOLALITY URINE 550 mOsmol/kg (.)
[2023-11-26 02:08] LABS: RPR Non Reactive (Non Reactive)
== END 2023-11-23 10:40 | disposition home or self-care (01) ==
LOC: ED 10:17 → MS2 13:25
PROVIDERS: ADMIT Specialist; ATTEND Specialist
DX: E87.1 Hypo-osmolality and hyponatremia (principal); R39.15 Urgency of urination; R35.0 Frequency of micturition; G30.9 Alzheimer's disease, unspecified; F02.80 Dementia in other diseases classified elsewhere, unspecified severity, without behavioral disturbance, psychotic disturbance, mood disturbance, and anxiety; R25.8 Other abnormal involuntary movements; R29.6 Repeated falls; R32 Unspecified urinary incontinence; M06.9 Rheumatoid arthritis, unspecified; K59.00 Constipation, unspecified; H52.4 Presbyopia; R51.9 Headache, unspecified; Z66 Do not resuscitate; Z75.3 Unavailability and inaccessibility of health-care facilities; Z91.81 History of falling
CPT/HCPCS: 36415; 70450; 80048; 80053; 81001; 82607; 83690; 83930; 83935; 84295; 84300; 84443; 84484; 85025; 86592; 93005; 99285; A9270; G0378; 81003; 87086

== ENCOUNTER 2023-12-15 16:11 | Emergency (ER) | payer MEDICARE ==
--- NOTE | 2023-12-15 16:41 | XRAY Report ---
PROCEDURE: Chest 2V INDICATIONS: SOA TECHNIQUE: 2 views of the chest were acquired. COMPARISON: 11/16/2023. FINDINGS: Surgical changes and devices: None. Lungs and pleura: No pleural effusions or pneumothorax. Lungs are clear. Mediastinum: Mediastinal contours appear normal. Heart size is normal. Bones and chest wall: No suspicious bony lesions. Overlying soft tissues appear unremarkable. IMPRESSION: No acute cardiopulmonary process. Reviewed by: Fco Euceda MD on 12/15/2023 4:40 PM PDT Approved by: Fco Euceda MD on 12/15/2023 4:40 PM PDT Station ID: [id number]
[2023-12-15 17:36] LABS: B. PARAPERTUSSIS- RESP PCR PAN NOT DETECTED; B. PERTUSSIS- RESP PCR PANEL NOT DETECTED; C. PNEUMONIAE- RESP PCR PANEL NOT DETECTED; CORONAVIRUS 229E-RESP PCR NOT DETECTED; CORONAVIRUS HKU1-RESP PCR NOT DETECTED; CORONAVIRUS NL63-RESP PCR NOT DETECTED; CORONAVIRUS OC43-RESP PCR NOT DETECTED; HUMAN METAPNEUMOVIRUS NOT DETECTED; INFLUENZA A- RESP PCR PANEL NOT DETECTED; INFLUENZA B - RESP PCR PANEL NOT DETECTED; M. PNEUMONIAE- RESP PCR PANEL NOT DETECTED; PARAINFLUENZA VIRUS 1 NOT DETECTED; PARAINFLUENZA VIRUS 2 NOT DETECTED; PARAINFLUENZA VIRUS 3 NOT DETECTED; PARAINFLUENZA VIRUS 4 NOT DETECTED; RHINOVIRUS/ENTEROVIRUS NOT DETECTED; RSV- RESP PCR PANEL NOT DETECTED; SARS-CoV-2 -RESP PCR PANEL NOT DETECTED
--- NOTE | 2023-12-15 17:38 | ED Physician Documentation ---
PD HPI DYSPNEA - Stated complaint Stated Complaint: SOA/COUGH - Chief complaint Chief Complaint: Resp - Additional information Additional information: 73-year-old female with history of dementia, hyponatremia, chronic constipation presents emergency department for concerns of cough and fatigue. Patient recently took care of her daughter who was recently ill and is worried that maybe she is coming down with something. She has had a cough for couple days and feels very fatigued tired lethargic. No nausea or vomiting no recent fevers or chills. Overall patient is a fairly poor historian her is at bedside who manages his medication and said that he has been giving her her appropriate salt tabs to help with her hyponatremia. 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 - Present Medications Home Medications: Ambulatory Orders Medication Instructions Recorded Confirmed Sodium Chloride 1,000 mg PO DAILY #30 tab 11/16/23 Donepezil [Aricept] 5 mg PO DAILY 11/23/23 - Allergies Allergies/Adverse Reactions: Allergies Allergy/AdvReac Type Severity Reaction Status Date / Time No Known Drug Allergies Allergy Verified 12/15/23 16:19 - Social History Does the pt smoke?: No Smoking Status: Never smoker Does the pt drink ETOH?: Yes Does the pt have substance abuse?: No - Immunizations Immunizations are current?: Yes - POLST Patient has POLST: No POLST Status: DNR (Would like to fill out a POLST) PD ED PE NORMAL - Vitals Vital signs reviewed: Yes - General General: Alert and oriented X 3, No acute distress, Well developed/nourished - HEENT HEENT: Atraumatic, PERRL - Cardiac Cardiac: RRR - Respiratory Respiratory: No respiratory distress, Clear bilaterally - Abdomen Abdomen: Normal bowel sounds, Soft, Non tender, Non distended, No organomegaly - Back Back: No CVA TTP - Derm Derm: Normal color, Warm and dry, No rash - Extremities Extremities: No edema, No calf tenderness / cord - Psych Psych: Other (Flat affect) Results - Vitals Vitals: Vital Signs - 24 hr 12/15/23 12/15/23 16:19 18:56 Temperature 36.9 C 36.6 C Heart Rate 89 88 Respiratory 17 16 Rate Blood Pressure 115/80 114/80 O2 Saturation 98 100 Oxygen O2 Source Room air - Labs Labs: Laboratory Tests 12/15/23 12/15/23 12/15/23 16:29 18:23 18:23 WBC 5.0 RBC 4.28 Hgb 12.6 Hct 37.3 MCV 87.1 MCH 29.4 MCHC 33.8 RDW 13.2 Plt Count 263 MPV 8.5 Neut # (Auto) 2.4 Lymph # (Auto) 1.9 [place] # (Auto) 0.5 Eos # (Auto) 0.1 Baso # (Auto) 0.1 Absolute Nucleated RBC 0.00 Nucleated RBC % 0.0 Sodium 133 L Potassium 4.3 Chloride 102 Carbon Dioxide 26 Anion Gap 5.0 L BUN 17 Creatinine 0.5 L Estimated GFR (MDRD) 122 Glucose 88 Calcium 9.1 Magnesium 1.9 Total Bilirubin 0.4 AST 12 ALT 13 Alkaline Phosphatase 46 Total Protein 5.8 L Albumin 4.0 Globulin 1.8 L Albumin/Globulin Ratio 2.2 Lipase 47 Nasal Adenovirus (PCR) NOT DETECTED Nasal B. parapertussis DNA (PCR) NOT DETECTED Nasal Coronavir 229E PCR NOT DETECTED Nasal Coronavir HKU1 PCR NOT DETECTED Nasal Coronavir NL63 PCR NOT DETECTED Nasal Coronavir OC43 PCR NOT DETECTED Nasal Enterovir/Rhinovir PCR NOT DETECTED Nasal Influenza B PCR NOT DETECTED Nasal Influenza A PCR NOT DETECTED Nasal Parainfluen 1 PCR NOT DETECTED Nasal Parainfluen 2 PCR NOT DETECTED Nasal Parainfluen 3 PCR NOT DETECTED Nasal Parainfluen 4 PCR NOT DETECTED Nasal RSV (PCR) NOT DETECTED Nasal B.pertussis DNA PCR NOT DETECTED Nasal C.pneumoniae (PCR) NOT DETECTED Trell Human Metapneumo PCR NOT DETECTED Nasal M.pneumoniae (PCR) NOT DETECTED Nasal SARS-CoV-2 (PCR) NOT DETECTED - Rads (name of study) Chest x-ray Relevant Findings:: Final report received, EMP independent interpretation of bernard t, Other (No acute cardiopulmonary abnormalities or findings) PD Medical Decision Making - ED course ED course: 73-year-old female presents emergency department for concerns of cough and generalized malaise. Respiratory swab was complete and she tested negative for all viruses. Labs are also complete for further evaluation no anemia no leukocytosis. She had very mild hyponatremia sodium level 133 which is significantly better in comparison to previous ER visits. Kidney function is within normal limits and no other acute abnormal findings in regards to her labs. Chest x-ray was also complete for further evaluation which did not reveal any acute cardiopulmonary abnormalities or findings. Patient is safe for discharge she is told to follow-up with her primary care provider outpatient for further evaluation return precautions given. Departure - Departure Disposition: Home, Self Care Clinical Impression: Fatigue Instructions: Fatigue Manage Comments: Thank you for trusting us with your care we have completed labs as well as a checks x-ray and we are not seeing any acute abnormalities. Please fill with your primary care provider about your ongoing weakness and fatigue. Forms: PCP List Discharge Date/Time: 12/15/23 18:56
[2023-12-15 18:29] LABS: BASOPHILS # (AUTO) 0.1 10^3/uL (0.0-0.1); BASOPHILS % (AUTO) 1.6 %; EOSINOPHILS # (AUTO) 0.1 10^3/uL (0.0-0.7); EOSINOPHILS % (AUTO) 2.4 %; HCT - HEMATOCRIT 37.3 % (37.0-47.0); HGB - HEMOGLOBIN 12.6 g/dL (12.0-16.0); LYMPHOCYTES # (AUTO) 1.9 10^3/uL (1.5-3.5); MEAN CORPUSCULAR HEMOGLOBIN 29.4 pg (27.0-31.0); MEAN CORPUSCULAR HGB CONC 33.8 g/dL (32.0-36.0); MEAN CORPUSCULAR VOLUME 87.1 fL (81.0-99.0); MEAN PLATELET VOLUME 8.5 fL (7.9-10.8); MONOCYTES # (AUTO) 0.5 10^3/uL (0.0-1.0); MONOCYTES % (AUTO) 10.4 %; NEUTROPHILS # (AUTO) 2.4 10^3/uL (1.5-6.6); NEUTROPHILS % (AUTO) 47.4 %; PLT - PLATELET COUNT 263 10^3/uL (130-450); RED BLOOD COUNT 4.28 10^6/uL (4.20-5.40); RED CELL DISTRIBUTION WIDTH 13.2 % (12.0-15.0)
[2023-12-15 18:50] LABS: ALBUMIN/GLOBULIN RATIO 2.2 (1.0-2.2); BILIRUBIN,TOTAL 0.4 mg/dL (0.2-1.0); CALCIUM 9.1 mg/dL (8.5-10.3); CREATININE 0.5 mg/dL (0.6-1.3); MAGNESIUM 1.9 mg/dL (1.7-2.3); POTASSIUM 4.3 mmol/L (3.5-4.5); TOTAL PROTEIN 5.8 g/dL (6.4-8.9)
[2023-12-15 19:03] VITALS: BP 114/80; O2SAT 100
== END 2023-12-15 18:56 | disposition home or self-care (01) ==
LOC: ED 16:11
DX: R53.83 Other fatigue (principal); R05.9 Cough, unspecified; G30.9 Alzheimer's disease, unspecified; F02.80 Dementia in other diseases classified elsewhere, unspecified severity, without behavioral disturbance, psychotic disturbance, mood disturbance, and anxiety; M06.9 Rheumatoid arthritis, unspecified; Z79.899 Other long term (current) drug therapy
CPT/HCPCS: 36415; 80053; 83690; 83735; 85025; 87633; 99284